=== PATIENT | female | born 1960 | race Caucasian/White ===

== ENCOUNTER 2018-06-20 21:15 | Emergency (ER) | payer OTHER, BC ==
[~2018-06-20] VITALS: Ht 160 cm; Wt 71.7 kg
--- OUTSIDE RECORDS SUMMARY | ~2018-06-20 | XMS | Encounter Summary ---
Demographics + + + | Address | [address] | | | [place] [address] | + + + | Home Phone | | + + + | Preferred Language | Unknown | + + + | Marital Status | Unknown | + + + | Scientology Affiliation | Unknown | + + + | Race | Unknown | + + + | Ethnic Group | Unknown | + + + Author + + + | Author | [facility] | | | and [place] | + + + | Organization | [facility] | | | and [place] | + + + | Address | Unknown | + + + | Phone | Unavailable | + + + Care Team Providers + +------+ + | Care Tar Boiler Name | Role | Phone | + +------+ + | Genaro Butterfield | Unavailable | + +------+ + Reason for Visit + + + | Reason | Comments | + + + | Medication Refill | | + + + Encounter Details +--------+--------+ + + + | Date | Type | Department | Care Team | Description | +--------+--------+ + + + | 05/07/ | Refill | [facility] | [facility] | Medication Refill | | 2017 | | [facility] | [facility] | | | | | [facility] [address] | | | | | | [address] [facility] [facility] [place], | | | | | | [place] [address] | | | | | | [phone] | | | +--------+--------+ + + + Social History + +-------+ +--------+------+ | Tobacco Use | Types | Packs/Day | Years | Date | | | | | Used | | + +-------+ +--------+------+ | Never Assessed | | | | | + +-------+ +--------+------+ + + + | Sex Assigned at | Date Recorded | | | | + + + | Not on file | | + + + as of this encounter Plan of Treatment Not on fileas of this encounter Visit Diagnoses Not on filein this encounter"
--- OUTSIDE RECORDS SUMMARY | ~2018-06-20 | XMS | Encounter Summary ---
Demographics + + + | Address | [address] | | | [place] [address] | + + + | Home Phone | | + + + | Preferred Language | Unknown | + + + | Marital Status | Unknown | + + + | Confucianism Affiliation | Unknown | + + + | Race | Unknown | + + + | Ethnic Group | Unknown | + + + Author + + + | Author | [facility] | | | and [place] | + + + | Organization | [facility] | | | and [place] | + + + | Address | Unknown | + + + | Phone | Unavailable | + + + Care Team Providers + +------+ + | Care Director Of Recreation Therapy Name | Role | Phone | + [...] Medication Refill | | 2017 | | [facility] | [facility] | | | | | [facility] [address] | | | | | | [address] [facility] [place], | | | | | | [place] [address] | | | | | | [phone] | | | +--------+--------+ + + + [...]
--- OUTSIDE RECORDS SUMMARY | ~2018-06-20 | XMS | Clinical Summary ---
Demographics + + + | Address | [address] | | | [place] [address] | + + + | Home Phone | | + + + | Preferred Language | Unknown | + + + | Marital Status | Unknown | + + + | Synagogue Affiliation | Unknown | + + + | Race | Unknown | + + + | Ethnic Group | Unknown | + + + Author + + + | Author | [facility] | | | and [place] | + + + | Organization | [facility] | | | and [place] | + + + | Address | Unknown | + + + | Phone | Unavailable | + + + Care Team Providers + +------+ + | Care Food Chemist Name | Role | Phone | + +------+ + | Genaro Butterfield PP | Unavailable | + +------+ + Allergies Not on File Current Medications + + +--------+---------+------+------+-------+ | Prescription | Sig. | Disp. | Refills | Star | End | Statu | | | | | | t | Date | s | | | | | | Date | | | + + +--------+---------+------+------+-------+ | levothyroxine | Take 1 tablet by | 90 | 4 | 08/2 | | Activ | | (SYNTHROID) 75 MCG | mouth every morning | tablet | | 0/20 | | e | | tablet | (before breakfast). 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 | | +--------+--------+ + + + from Last 3 Months Social History + +-------+ +--------+------+ | Tobacco [...] on file | | + + + Plan of Treatment + + + + + | Health Maintenance | Due Date | Last Done | Comments | + + + + + | Hepatitis C | | | | | Screening | 8 | | | + + + + + | PRIMARY CARE | | | | | OUTREACH-LOW RISK | 8 | | | | EVERY 2 YEARS | | | | + + + + + | Vaccine: | | | | | Dtap/Tdap/Td (1 - | 7 | | | | Tdap) | | | | + + + + + | Cervical Cancer | | | | | Screening (Pap) | 8 | | | + + + + + | BREAST CANCER | | | | | SCREENING (MAMM Q2 | 8 | | | | YEARS 50-74) | | | | + + + + + | Colorectal Cancer | | | | | Screening | 8 | | | | (Colonoscopy) | | | | + + + + + | Vaccine: Influenza | | | | | (#1) | 8 | | | + + + + + Results Not on filefrom Last 3 Months"
--- OUTSIDE RECORDS SUMMARY | ~2018-06-20 | XMS | Clinical Summary ---
Demographics + + + | Address | [address] | | | [place] [address] | + + + | Home Phone | | + + + | Preferred Language | Unknown | + + + | Marital Status | Unknown | + + + | Temple Affiliation | Unknown | + + + | Race | Unknown | + + + | Ethnic Group | Unknown | + + + Author + + + | Author | [facility] | | | and [place] | + + + | Organization | [facility] | | | and [place] | + + + | Address | Unknown | + + + | Phone | Unavailable | + + + Care Team Providers + +------+ + | Care Start Up Specialist Name | Role | Phone | + [...] 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
[~2018-06-20 21:15] MED LIST: AUGMENTIN 875-1 EACH PO; LEVOTHYROXINE75 MCG PO; MECLIZINE HCL25 MG PO; MOTRIN IB200 MG PO; OXYCODON-ACETA1 EAC2 PO; SUDAFED30 MG PO; SYNTHROID50 MCG PO; TRANSDERM-SCOP1 EA TD
[2018-06-20] MEDS ORDERED: MECLIZINE HCL25 MG PO (23:29)
== END 2018-06-20 23:39 | disposition home or self-care (01) ==
LOC: ED 21:15
DX: H81.20 Vestibular neuronitis, unspecified ear (principal); Z88.2 Allergy status to sulfonamides; Z88.8 Allergy status to other drugs, medicaments and biological substances; Z79.899 Other long term (current) drug therapy
CPT/HCPCS: 99283

== ENCOUNTER 2019-03-03 21:37 | Emergency (ER) | payer OTHER, BC ==
[~2019-03-03] VITALS: Ht 160 cm; Wt 71.7 kg
[2019-03-03] MEDS ORDERED: NORCO 5-325 TA1 EACH PO (23:11)
== END 2019-03-03 23:42 | disposition home or self-care (01) ==
LOC: ED 21:37
PROC: 2W3CX1Z Immobilization of Right Lower Arm using Splint (ICD-10-PCS; principal; 2019-03-03)
DX: S62.111A Displaced fracture of triquetrum [cuneiform] bone, right wrist, initial encounter for closed fracture (principal); S53.402A Unspecified sprain of left elbow, initial encounter; E03.9 Hypothyroidism, unspecified; Z90.710 Acquired absence of both cervix and uterus; Z90.49 Acquired absence of other specified parts of digestive tract; Z91.018 Allergy to other foods; Z88.2 Allergy status to sulfonamides; Z79.899 Other long term (current) drug therapy; W01.0XXA Fall on same level from slipping, tripping and stumbling without subsequent striking against object, initial encounter
CPT/HCPCS: 29125; 73090; 73110; 99283-25